=== PATIENT | female | born 1965 | race Caucasian/White ===

== ENCOUNTER → 2016-05-22 | Outpatient (CLI) | payer OTHER ==
[~2016-05-22] MED LIST: ASCORBIC ACID500 M3 PO; CLARITIN10 MG PO; IRON325 MG PO; NORVASC10 MG PO; PERCOCET 5/31 TABLET PO; ZESTORETIC 20-1 EAC1 PO
== END | disposition home or self-care (01) ==
LOC: CDC 10:33
DX: Z01.810 Encounter for preprocedural cardiovascular examination (principal); D25.9 Leiomyoma of uterus, unspecified
CPT/HCPCS: 93000

== ENCOUNTER 2016-05-27 05:31 | Day surgery (SDC) | payer OTHER ==
[~2016-05-27] VITALS: Ht 170.2 cm; Wt 89.8 kg
[~2016-05-27 05:31] MED LIST changes: -PERCOCET 5/31 TABLET PO
[2016-05-27 05:56] VITALS: BP 144/81
[2016-05-27 19:52] VITALS: BP 115/57; BP 118/64
[2016-05-27 23:48] VITALS: BP 114/57
[2016-05-28 03:35] VITALS: BP 123/68
[2016-05-28 07:05] VITALS: BP 142/73
[2016-05-28 07:38] LABS: HEMATOCRIT 30.4 % (36.0-46.0); MCH 28.6 PG (29.0-34.0); MCHC 33.2 G/DL (30.0-36.0); MCV 86.1 FL (83-99); MEAN PLAT.VOLUME 10.2 uM^3 (9.5-12.4); PLATELET COUNT 258 K/uL (156-360); RBC DIS.WIDTH-CV 12.7 % (11.8-14.6); RBC DIS.WIDTH-SD 39.5 % (39-53); RED BLOOD COUNT 3.53 M/uL (3.80-5.20)
[2016-05-28 07:42] LABS: WHITE BLOOD COUNT 14.6 K/uL (4.1-10.2)
[2016-05-28] MEDS ORDERED: PERCOCET 5/31 TABLET PO (08:25)
== END 2016-05-28 10:01 | disposition home or self-care (01) ==
LOC: SDC → 2SOUTH 10:10 → 2EAST 10:10 → SDC 14:29 → 2EAST 05-28 10:01
PROVIDERS: Obstetrics & Gynecology
DX: D25.1 Intramural leiomyoma of uterus (principal); D25.2 Subserosal leiomyoma of uterus; N92.0 Excessive and frequent menstruation with regular cycle; N81.4 Uterovaginal prolapse, unspecified; I10 Essential (primary) hypertension; E78.5 Hyperlipidemia, unspecified; Z87.891 Personal history of nicotine dependence; Z82.49 Family history of ischemic heart disease and other diseases of the circulatory system; Z83.3 Family history of diabetes mellitus
CPT/HCPCS: 85027; 88305; 88307; G0378; J0330; J0690; J1100; J1885; J2250; J2270; J2405; J2710; J3010; J7120; S0020

== ENCOUNTER 2016-06-07 22:22 | Emergency (ER) | payer OTHER ==
[~2016-06-07] VITALS: Ht 170.2 cm; Wt 87.3 kg
[~2016-06-07 22:22] MED LIST changes: +PERCOCET 5/31 TABLET PO
[2016-06-07 23:08] LABS: ADD MIUA? YES; BILIRUBIN NEGATIVE; BLOOD SMALL; COLOR YELLOW ((YELLOW)); GLUCOSE (STRIP) NEGATIVE; KETONES NEGATIVE; LEUKOCYTES MODERATE; NITRITE NEGATIVE; PROTEIN (STRIP) 30; SPECIFIC GRAVITY 1.011 (1.000-1.030); UROBILINOGEN 0.2 MG/DL (0.2-1.0)
[2016-06-07 23:13] LABS: BACTERIA RARE /HPF; EPITHELIAL CELLS 3+ /HPF; MUCUS TRACE /LPF; UCUL ADDED? NO; UNCLASSIFIED CRYSTALS 2+ /HPF; WHITE BLOOD CELLS 40-50 /HPF (0-5)
[2016-06-07 23:22] LABS: HEMATOCRIT 35.9 % (36.0-46.0); MCH 28.5 PG (29.0-34.0); MCHC 33.1 G/DL (30.0-36.0); MCV 85.9 FL (83-99); MEAN PLAT.VOLUME 9.5 uM^3 (9.5-12.4); PLATELET COUNT 337 K/uL (156-360); RBC DIS.WIDTH-CV 12.6 % (11.8-14.6); RBC DIS.WIDTH-SD 39.5 % (39-53); RED BLOOD COUNT 4.18 M/uL (3.80-5.20); WHITE BLOOD COUNT 18.3 K/uL (4.1-10.2)
[2016-06-07 23:31] LABS: CHLORIDE 98 mEq/L (99-109); POTASSIUM 3.3 mEq/L (3.7-5.4); SODIUM 135 mEq/L (136-147)
[2016-06-07 23:33] LABS: GLUCOSE 118 mg/dL (70-99)
[2016-06-07 23:34] LABS: ANION GAP 14 MEQ/L (2-14)
[2016-06-07 23:35] LABS: TOTAL BILIRUBIN 0.6 mg/dL (0.0-1.0)
[2016-06-07 23:37] LABS: ALKALINE PHOSPHATASE 102 IU/L (3-129); GFR ESTIMATE (CALCULATED) > 59 mL/min/
[2016-06-07 23:38] LABS: UREA NITROGEN (BUN) 10 mg/dL (9-23)
[2016-06-07 23:40] LABS: LIPASE 19 U/L (1.0-51.0)
[2016-06-07 23:49] LABS: QUANTITATIVE HCG 4.3 MIU/ML
[2016-06-08 00:34] LABS: ADD MIUA? NO; BILIRUBIN NEGATIVE; BLOOD NEGATIVE; COLOR COLORLESS ((YELLOW)); GLUCOSE (STRIP) NEGATIVE; KETONES NEGATIVE; LEUKOCYTES NEGATIVE; NITRITE NEGATIVE; PROTEIN (STRIP) NEGATIVE; SPECIFIC GRAVITY 1.004 (1.000-1.030); UCUL ADDED? NO; UROBILINOGEN 0.2 MG/DL (0.2-1.0)
[2016-06-08 03:21] VITALS: BP 138/82
== END 2016-06-08 03:23 | disposition home or self-care (01) ==
LOC: EME 22:22
PROVIDERS: Emergency Medicine
DX: R10.9 Unspecified abdominal pain (principal); R50.82 Postprocedural fever; N76.2 Acute vulvitis; Z87.891 Personal history of nicotine dependence
CPT/HCPCS: 71010; 74177; 80053; 81003; 83605; 83690; 84702; 85027; 87040; 99281; 99284; J7030